=== PATIENT | male | born 1950 | race Caucasian/White ===

== ENCOUNTER 2018-09-01 09:57 | Outpatient (CLI) | payer MEDICARE | END 2018-09-01 23:59 | disposition home or self-care (01) | LOC: CFH 09:57 | PROVIDERS: ATTEND Internal Medicine Gastroenterology | DX: M85.88 Other specified disorders of bone density and structure, other site (principal); K50.111 Crohn's disease of large intestine with rectal bleeding; I10 Essential (primary) hypertension; Z87.891 Personal history of nicotine dependence; Z79.52 Long term (current) use of systemic steroids | CPT/HCPCS: 77080 ==